=== PATIENT | male | born 1945 | race Caucasian/White ===

== ENCOUNTER 2016-04-08 11:21 | Day surgery (SDC) | payer OTHER, MEDICARE ==
[~2016-04-08 11:21] MED LIST: PROPOFOL/EMULSION 500 MG/50 ML BOTTLE IV ONE
[2016-04-08] MEDS ORDERED: LR 1,000 ML IV ONE (12:00)
--- NOTE | 2016-04-08 13:35 | GPN ---
[f rep st] PROCEDURE NOTE DATE OF PROCEDURE: 04/08/2016 PROCEDURE: Esophagogastroscopy with biopsy. INDICATION: The patient is a 70-year-old male who presents for evaluation of noncardiac chest pain for further evaluation. CONSENT: Risks, benefits, and alternatives of the procedure were discussed in great detail with the patient. Risk of infection, bleeding, perforation, and sedation were discussed. All questions ans wered, informed consent obtained. MEDICATIONS: Propofol. Please see anesthesiology record for details. ESTIMATED BLOOD LOSS: Insignificant. ESOPHAGOGASTRODUODENOSCOPY EXAMINATION: The Olympus upper endoscope was introduced via the mouth an d advanced to the esophagus. In the midesophagus, there was a subtle ringed appearance as well as p ossible linear furrows. Biopsies were taken. The stomach was entered and closely examined, including retroflexed views of angularis, cardia and f undus. Patient was noted to have a small hiatal hernia. The mucosa in the antrum and the body was erythematous in a patchy distribution, and biopsies were taken. The duodenal bulb, first and second portions of the duodenum were normal in appearance. Biopsies we re taken to rule out celiac sprue. IMPRESSION: 1. Gastritis, status post biopsy. 2. Mucosal changes in the midesophagus, status post biopsies. 3. Biopsies taken to rule out celiac sprue. 4. Hiatal hernia. 5. Suspect symptoms may be secondary to reflux disease. Would recommend PPI therapy. RECOMMENDATIONS: 1. Follow up on biopsy results. 2. PPI therapy. /[id number]/MODL
--- NOTE | 2016-04-08 14:45 | GPN ---
[f rep st] PROCEDURE NOTE DATE OF PROCEDURE: 04/08/2016 PROCEDURE: Colonoscopy with snare polypectomy. INDICATION: The patient is a 70-year-old male who presents for evaluation of a change in bowel habi ts. CONSENT: Risks, benefits, and alternatives of the procedure were discussed in great detail with the patient. Risks of infection, bleeding, perforation, sedation were discussed. All questions were a nswered. Informed consent was obtained. MEDICATIONS: Propofol. Please see Anesthesiology record for details. ESTIMATED BLOOD LOSS: Insignificant. COLONOSCOPIC EVALUATION: On rectal exam, no palpable masses were felt. The scope was introduced via the rectum, advanced to the cecum. The ileocecal valve and appendiceal orifice were seen. The quality of prep was fair. The terminal ilium was intubated and was normal in appearance. In the sigmoid colon, and to the ascending colon, multiple scattered diverticula were noted. In the cecum a 4 mm polyp was seen and removed by snare polypectomy. No further masses or polyps were seen. IMPRESSION: 1. Cecal polyp status post snare polypectomy. 2. Diverticulosis. RECOMMENDATIONS: 1. Fiber supplementation. 2. Repeat colonoscopy in 5 years. /[id number]/MODL
== END 2016-04-08 15:00 | disposition home or self-care (01) ==
LOC: FSGY 11:21
PROVIDERS: ATTEND Internal Medicine Gastroenterology
PROC: 0DB98ZX Excision of Duodenum, Via Natural or Artificial Opening Endoscopic, Diagnostic (ICD-10-PCS; 2016-04-08)
PROC: 0DBH8ZX Excision of Cecum, Via Natural or Artificial Opening Endoscopic, Diagnostic (ICD-10-PCS; 2016-04-08)
PROC: 0DB28ZX Excision of Middle Esophagus, Via Natural or Artificial Opening Endoscopic, Diagnostic (ICD-10-PCS; principal; 2016-04-08 12:45)
PROC: 0DB68ZX Excision of Stomach, Via Natural or Artificial Opening Endoscopic, Diagnostic (ICD-10-PCS; 2016-04-08 12:45)
DX: D12.0 Benign neoplasm of cecum (principal); K29.70 Gastritis, unspecified, without bleeding; K20.9 Esophagitis, unspecified; K57.30 Diverticulosis of large intestine without perforation or abscess without bleeding; R19.4 Change in bowel habit; R07.9 Chest pain, unspecified; R10.13 Epigastric pain; R63.4 Abnormal weight loss; K44.9 Diaphragmatic hernia without obstruction or gangrene; G89.29 Other chronic pain; F32.9 Major depressive disorder, single episode, unspecified; E78.5 Hyperlipidemia, unspecified; I10 Essential (primary) hypertension; G47.33 Obstructive sleep apnea (adult) (pediatric); F41.9 Anxiety disorder, unspecified; E55.9 Vitamin D deficiency, unspecified; E66.9 Obesity, unspecified; Z68.30 Body mass index [BMI] 30.0-30.9, adult; Z82.49 Family history of ischemic heart disease and other diseases of the circulatory system; Z85.819 Personal history of malignant neoplasm of unspecified site of lip, oral cavity, and pharynx; Z87.891 Personal history of nicotine dependence
CPT/HCPCS: J2704